=== PATIENT | female | born 1990 | race Caucasian/White ===

== ENCOUNTER 2018-03-25 11:13 | Observation (INO) ==
[2018-03-25] MEDS ORDERED: Ketorolac 15 MG/ML VIAL IVP ONE (12:16)
[2018-03-25] MEDS ORDERED: *HR* HYDROmorphone (PF) 1 MG/ML SYRINGE IVP ONE (12:16)
[2018-03-25] MEDS ORDERED: Ondansetron 4 MG/2 ML VIAL IVP ONE (12:16)
[2018-03-25] MEDS ORDERED: 0.9 % Sodium Chloride 1,000 ML IVC ONE (12:16)
[2018-03-25 12:26] LABS: Bilirubin,Urine Negative (Negative); Blood,Urine Moderate (Negative); Clarity,Urine Clear (Clear); Color,Urine Yellow (Yellow); Glucose,Urine (UA) Normal (Normal); Ketones,Urine Negative (Negative); Leukocyte Esterase,Urine Negative (Negative); Nitrite,Urine Negative (Negative); Protein,Urine Trace mg/dL (Neg-Trace); Specific Gravity,Urine 1.011 (1.010-1.025); Urobilinogen,Urine Normal (Normal)
[2018-03-25 12:27] LABS: Bacteria,Urine Few per hpf (None-Few); Hyaline Casts,Urine None Seen per lpf (None-Few); RBC,Urine 15-30 per hpf (0-3); Squamous Epithelial Cell,Urine Many per lpf (None-Few)
[2018-03-25 12:55] LABS: BUN/Creatinine Ratio 24 (6-26); Blood Urea Nitrogen 21 mg/dL (6-20); Calcium 9.1 mg/dL (8.6-10.3); Carbon Dioxide 25 mEq/L (23-29); Chloride 99 mEq/L (98-107); Glucose 222 mg/dL (70-105); Osmolality,Calculated 290 (280-300); Potassium 4.2 mEq/L (3.5-5.1); Sodium 135 mEq/L (136-145); eGFR For Non-African Americans > 60 (> 60)
--- NOTE | 2018-03-25 13:10 | Emergency Department Note ---
Addendum entered and electronically signed by Erendira Cochran DO 03/26/18 18:58: I did not see this patient. Original Note: Disposition Clinical Impression: Kidney stone, At risk for inadequate pain control Nausea and vomiting Qualifiers: Vomiting type: unspecified Qualified Code(s): R11.2 - Disposition: Admitted As Inpatient Condition: Fair Abdominal Pain HPI - General Chief Complaint: ED Abdominal Pain Stated Complaint: L Flank Pain Time Seen by Provider: 03/25/18 11:47 Source: patient Mode of arrival: ambulatory Limitations: no limitations Nursing Notes Reviewed: Yes Vital Signs Reviewed: Yes - History of Present Illness HPI Narrative: Patient presenting for evaluation of left-sided flank pain. Symptoms started during the week. CAT scan showed left-sided kidney stone. Records do show foci kidney stone. She was taking morphine at home morphine has not been relieving her pain. She has been out of this for 2 days. Not taking other medications. We will attempt to get pain control. Here for left-sided flank pain radiating to the groin. Decreased urination without burning. Associated nausea. Pain Scale: 10 - Related Data Home Medications Medication Instructions Recorded Confirmed RX: Ibuprofen [Ibu-200] 400 mg PO Q6H PRN 03/26/18 03/26/18 Previous Rx's Medication Instructions Recorded RX: OxyCODONE/APAP 5/325 [Percocet 1 each PO Q8HR PRN 3 Days #10 03/26/18 5/325 MG] tablet RX: metFORMIN [Glucophage] 500 mg PO BIDWM #60 tablet 03/26/18 Allergies Allergy/AdvReac Type Severity Reaction Status Date / Time No Known Allergies Allergy Verified 03/06/18 09:04 All systems ED: reviewed and negative except as stated. Review of Systems: As Per HPI Constitutional: Denies: fever, chills, weakness Cardiovascular: Denies: chest pain, palpitations Respiratory: Denies: cough, dyspnea Gastrointestinal: Reports: abdominal pain, nausea. Denies: vomiting Genitourinary: Denies: urgency, dysuria Musculoskeletal: Reports: back pain Integumentary: Denies: rash, abrasion Abdominal Pain PMH - Past Medical History Medical history: Reports: no medical history, other Female Surgical History: Reports: , cholecystectomy, knee replacement, orthopedic, other, other [employer] history: Reports: polycystic ovary syndrome Psychiatric history: Reports: depression - Social History Smoking status: Never smoker Alcohol use: Reports: none Drug use: Reports: none Physical Exam General: Well appearing, nontoxic, no acute distress Head: Normocephalic Atraumatic Eyes: PERRL, EOMI ENT: Airway patent, no stridor Neck: supple Chest: Lungs clear to auscultation bilateral Cardiac: Regular rate and rhythm, no murmurs, rubs or gallops Abdomen: soft, nontender, nondistended; no guarding, rebound, or tenderness to percussion; no significant CVA tenderness Musculoskeletal: Calves symmetric, nontender Skin: No rash, normal skin tone Neuro: Alert and Oriented to person, place, and time; No focal deficit - General Limitations: no limitations General appearance: alert Course - Reevaluation(s) Reevaluation #1: Patient was given Toradol and Dilaudid. Worsening nausea and vomiting. Patient will be admitted for pain control and kidney stone. - Consultations Consultation #1: Discussed with Dr. Martinez Requests hospitalist admission. Keep nothing by mouth. Consultation #2: Discussed with hospitalist. Patient accepted. Vital Signs Temperature 97.7 F 03/25/18 11:26 Pulse Rate 90 03/25/18 11:26 Respiratory Rate 18 03/25/18 11:26 Blood Pressure 123/89 03/25/18 11:26 O2 Sat by Pulse Oximetry 96 03/25/18 11:26 Temperature 98 F 03/26/18 15:49 Pulse Rate 69 03/26/18 15:49 Respiratory Rate 17 03/26/18 15:49 Blood Pressure 101/69 03/26/18 15:49 O2 Sat by Pulse Oximetry 95 03/26/18 15:49 Oxygen Delivery Oxygen Delivery Room Air Abdominal Pain - Lab Data Lab results reviewed: Yes I reviewed the patient's lab results. Result diagrams: 03/26/18 02:20 03/26/18 02:20 Lab Results 03/25/18 03/25/18 03/25/18 Range/Units 11:26 11:26 11:31 Sodium 135 L (136-145) mEq/L Potassium 4.2 (3.5-5.1) mEq/L Chloride 99 (98-107) mEq/L Carbon Dioxide 25 (23-29) mEq/L BUN 21 H (6-20) mg/dL Creatinine 0.87 (0.60-1.20) mg/dL Est GFR ( Amer) > 60 (> 60) Est GFR (Non-Af Amer) > 60 (> 60) BUN/Creatinine Ratio 24 (6-26) Glucose 222 H (70-105) mg/dL Est Mean Plasma Glucose mg/dl Hemoglobin A1c ( - 5.6) % Calculated Osmolality 290 (280-300) Calcium 9.1 (8.6-10.3) mg/dL Urine Color Yellow (Yellow) Urine Clarity Clear (Clear) Urine pH 6.0 (5.0-8.0) pH Units Ur Specific [place] 1.011 (1.010-1.025) Urine Protein Trace (Neg-Trace) mg/dL Urine Glucose (UA) Normal (Normal) mg/dL Urine Ketones Negative (Negative) mg/dL Urine Blood Moderate H (Negative) Urine Nitrite Negative (Negative) Urine Bilirubin Negative (Negative) Urine Urobilinogen Normal (Normal) mg/dL Ur Leukocyte Esterase Negative (Negative) Urine Microscopic RBC 15-30 H (0-3) per hpf Urine Microscopic WBC 3-5 H (0-3) per hpf Ur Squamous Epith Cells Many H (None-Few) per lpf Urine Bacteria Few (None-Few) per hpf Hyaline Casts None Seen (None-Few) per lpf Ur Culture Indicated? NO (NO) Urine Test Negative (Negative) 03/25/18 Range/Units 11:31 Sodium (136-145) mEq/L Potassium (3.5-5.1) mEq/L Chloride (98-107) mEq/L Carbon Dioxide (23-29) mEq/L BUN (6-20) mg/dL Creatinine (0.60-1.20) mg/dL Est GFR ( Amer) (> 60) Est GFR (Non-Af Amer) (> 60) BUN/Creatinine Ratio (6-26) Glucose (70-105) mg/dL Est Mean Plasma Glucose 226 mg/dl Hemoglobin A1c 9.5 H ( - 5.6) % Calculated Osmolality (280-300) Calcium (8.6-10.3) mg/dL Urine Color (Yellow) Urine Clarity (Clear) Urine pH (5.0-8.0) pH Units Ur Specific [place] (1.010-1.025) Urine Protein (Neg-Trace) mg/dL Urine Glucose (UA) (Normal) mg/dL Urine Ketones (Negative) mg/dL Urine Blood (Negative) Urine Nitrite (Negative) Urine Bilirubin (Negative) Urine Urobilinogen (Normal) mg/dL Ur Leukocyte Esterase (Negative) Urine Microscopic RBC (0-3) per hpf Urine Microscopic WBC (0-3) per hpf Ur Squamous Epith Cells (None-Few) per lpf Urine Bacteria (None-Few) per hpf Hyaline Casts (None-Few) per lpf Ur Culture Indicated? (NO) Urine Test (Negative) - Radiology Data Radiology results reviewed: Yes I reviewed the patient's radiology results. Fluoroscopy 03/25/18 00:00 IMPRESSION: Fluoroscopy was utilized for the purposes of left renal stent placement for ureteral calculus D/ / Shawn Gallagher MD / Shawn Gallagher MD Interpreting Provider: Shawn Gallagher MD X-Ray 03/25/18 00:00
[2018-03-25] MEDS ORDERED: Metoclopramide 10 MG/2 ML VIAL IVP ONE (13:57)
[2018-03-25] MEDS ORDERED: *HR* FentaNYL (PF) 100 MCG/2 ML VIAL IVP ONE (13:57)
[2018-03-25] MEDS ORDERED: Naloxone 0.4 MG/ML INJ IVP PRN ×2 (14:29→17:54)
[2018-03-25] MEDS ORDERED: Ondansetron 4 MG/2 ML VIAL IVP PRN (14:33)
[2018-03-25] MEDS ORDERED: *HR* Dextrose 50 % in Water (Syg) 50 ML SYRINGE IVP PRN ×2 (14:34→17:54)
[2018-03-25] MEDS ORDERED: Dextrose Gel 15 GM/37.5 ML TUBE PO PRN ×4 (14:34→17:54)
[2018-03-25] MEDS ORDERED: D5% in Water 1,000 ML IVC PRN ×2 (14:34→17:54)
--- NOTE | 2018-03-25 14:40 | Internal Med History&Physical ---
Date of Encounter: 03/25/18 Time of Encounter: 14:35 Internal Medicine - H&P: HPI Chief complaint: Left flank pain, vomiting Admitted From: Home Plans for Post Hospital Care: at Home History of present illness: Ms. Schulte is a 27 year old female with history of depression but not on any antidepressant, questionable diabetes mellitus, COPD but not on any home medication presented to ER with worsening of left flank pain associated with nausea but started vomiting today therefore decided to come to ER. Patient was here in the ER recently on 03/18/2018 with left flank pain and CT scan of abdomen was done with finding of 6 mm obstructive nephrolithiasis within the left UPJ causing mild hydronephrosis but she was sent home on conservative management and advised to follow with urologist and return to ER if symptoms get worse. Eventually her symptoms got worse therefore decided to come to ER. In ER her vitals were stable. Initial lab with elevation of blood glucose level but CBC not ordered. Repeat CT abdomen was not done. ER physician talked to on-call urologist and discussed the case with urologist who advised to admit patient under hospitalist and accepted the consultation. In ER initial supportive management with IV fluid, antiemetic and pain medicine was started. ER physician called on-call hospitalists for the admission. Patient denies fever chills dizziness chest pain shortness of breath cough diarrhea and urinary complaint. complained of nausea vomiting abdominal pain rated 10 x 10 at this time. Past Med Surg Social Fam HX - Past Medical History Medical history: no medical history, other Additional medical history: PCOS Psychiatric history: depression - Past Surgical History Surgical History: , cholecystectomy, orthopedic, other Additional surgical history: left knee. carpal tunnel/tendon surgery on left wrist - Social History Smoking Status: Never smoker Smokeless Tobacco Status: No Alcohol use: none Drug use: none Internal Medicine - H&P: Meds Cyclobenzaprine [Flexeril] 10 mg PO HS #10 tablet 03/06/18 [Rx] Ibuprofen 03/06/18 [History] Naproxen [Naprosyn] 500 mg PO BID PRN #20 tablet 03/06/18 [Rx] Allergy/AdvReac Type Severity Reaction Status Date / Time No Known Allergies Allergy Verified 03/06/18 09:04 All Systems PM: A 10-system review of systems was performed and is negative for pertinent findings except as documented above in the HPI. - Constitutional Vitals: Temp Pulse Resp BP Pulse Ox 97.7 F 90 20 115/72 100 03/25/18 11:26 03/25/18 12:51 03/25/18 12:51 03/25/18 12:51 03/25/18 12:51 Exam: General appearance: Moderate to severe distress due to pain, A&O X 3. Girlfriend at bedside. Morbidly obese Head exam: Atraumatic Eye exam: EOMI, PERRLA ENT exam: Moist oral mucosa Neck nontender, supple Respiratory exam: Clear to auscultation bilaterally Cardiovascular exam: Regular rate and rhythm, no systolic murmur Abdominal exam: Soft, nondistended, positive bowel sounds , left CVA tenderness Extremities exam: No calf tenderness, no pedal edema Present: Skin-no rash, warm, dry, intact Neurological exam: CN II-XII intact, no focal deficits. No facial droop. Internal Med - H&P Results - Labs CBC & Chem 7: 03/25/18 11:31 Labs: BMP 03/25/18 11:31 Sodium 135 L Potassium 4.2 Chloride 99 Carbon Dioxide 25 BUN 21 H Creatinine 0.87 Glucose 222 H Calcium 9.1 Urine 03/25/18 Range/Units 11:26 Urine Color Yellow (Yellow) Urine Clarity Clear (Clear) Urine pH 6.0 (5.0-8.0) pH Units Ur Specific [place] 1.011 (1.010-1.025) Urine Protein Trace (Neg-Trace) mg/dL Urine Glucose (UA) Normal (Normal) mg/dL - Assessment and plan (1) Obstructive uropathy Current Visit: Yes Status: Acute Assessment and plan: Secondary to left kidney stone 6-8 mm left UPJ site with obstruction. Consulted urologist who will take patient to operative room today for cystoscopy and left ureteral stent placement. Continue conservative management keeping nothing by mouth, normal saline 125 mL per hour, pain management. Urine culture ordered. Rocephin started. CBC is awaited. (2) Kidney stone on left side Current Visit: No Status: Acute Assessment and plan: As mentioned above. (3) Nausea and vomiting Current Visit: Yes Status: Acute Assessment and plan: With mild to moderate dehydration. Secondary to above. Supportive treatment IV fluid, nothing by mouth, antiemetic. Treat underlying cause. Qualifiers: Vomiting type: unspecified Qualified Code(s): R11.2 - Nausea with vomiting, unspecified (4) Poorly controlled diabetes mellitus Current Visit: Yes Status: Acute Assessment and plan: Noncompliance. Does not take any antidiabetic medication. A1c ordered. SSI. Accu-Chek, Diabetic diet. Diabetes education (5) DVT prophylaxis Current Visit: Yes Status: Acute Assessment and plan: SCDs. Plan for early ambulation (6) Obesity Current Visit: Yes Status: Acute Assessment and plan: High risk for metabolic syndrome. Patient has diabetes unknown status about lipid profile. Educated about low-calorie diet and exercise. Also advised for weight loss clinic with the help of PCP on OPD basis. Qualifiers: Obesity type: unspecified obesity type Obesity classification: adult class 3 (BMI >= 40) Serious obesity comorbidity presence: unspecified whether serious comorbidity present Body mass index: BMI 50.0-59.9 Qualified Code(s): E66.01 - Morbid (severe) obesity due to excess calories; Z68.43 - Body mass index (BMI) 50-59.9, adult - Time Spent With Patient Total time spent is greater than 50% in coordination of care (as documented) at patient's floor/unit and/or counseling patient: 25 - 35 minutes
[2018-03-25] MEDS ORDERED: 0.9 % Sodium Chloride 1,000 ML IVC SCH (14:45)
--- NOTE | 2018-03-25 14:46 | Urology - Consult Note ---
Date of Encounter: 03/25/18 Time of Encounter: 14:44 - Assessment and Plan (1) Nausea and vomiting Current Visit: Yes Status: Acute Assessment and plan: Likely secondary to obstructing stone. We will plan on taking the patient to the operating room today for cystoscopy and left ureteral stent placement Qualifiers: Vomiting type: unspecified Qualified Code(s): R11.2 - Nausea with vomiting, unspecified (2) Poorly controlled diabetes mellitus Current Visit: Yes Status: Acute Assessment and plan: Per primary team. Patient needs tight control blood sugar. (3) Kidney stone on left side Current Visit: No Status: Acute Assessment and plan: Patient with obstructing 6-8 mm left UPJ stone. We will plan on taking the patient to the operating room today for cystoscopy and left ureteral stent placement. Urology CN:ALEE Consult date: 03/25/18 Reason for consult Urology: Hydronephrosis Requesting physician: Shannon Carlton History of present illness: Marisa is a 27-year-old female who presented to the emergency department approximately a week ago secondary to left UPJ stone. Patient was discharged home that time with pain control and nausea control. Patient now presents back to the emergency room secondary pain is uncontrollable with a 10 out of 10 sharp in nature with location a left flank with some persistent nausea and vomiting. Patient denies any fevers. Patient feels so awful that she is barely able to answer questions Past Med Surg Social Fam HX - Past Medical History Medical history: no medical history, other Additional medical history: PCOS Psychiatric history: depression - Past Surgical History Surgical History: , cholecystectomy, orthopedic, other Additional surgical history: left knee. carpal tunnel/tendon surgery on left wrist - Social History Smoking Status: Never smoker Smokeless Tobacco Status: No Alcohol use: none Drug use: none Medications and Allergies Cyclobenzaprine [Flexeril] 10 mg PO HS #10 tablet 03/06/18 [Rx] Ibuprofen 03/06/18 [History] Naproxen [Naprosyn] 500 mg PO BID PRN #20 tablet 03/06/18 [Rx] Allergy/AdvReac Type Severity Reaction Status Date / Time No Known Allergies Allergy Verified 03/06/18 09:04 Review of Systems - Constitutional no chills, no fever(s) - EENT Nose, mouth and throat: no dizziness, no sore throat - Cardiovascular no dyspnea - Respiratory no cough - Gastrointestinal nausea, vomiting Exam Initial Vital Signs Temp Pulse Resp BP Pulse Ox 97.7 F 90 18 123/89 96 03/25/18 11:26 03/25/18 11:26 03/25/18 11:26 03/25/18 11:26 03/25/18 11:26 General/Neuological: alert and oriented x 3 Eyes: normal pupils, non-icteric Neck: no lymphadenopathy noted, supple to touch ABD: soft, nontender, no masses palpated, good bowel sounds Back: no pain on percussion bilaterally Skin: no rashes noted Musculoskeletal: normal gait, FROMx4 Urology Results - Labs 03/25/18 11:31 Abnormal lab results Sodium 135 mEq/L (136-145) L 03/25/18 11:31 BUN 21 mg/dL (6-20) H 03/25/18 11:31 Glucose 222 mg/dL (70-105) H 03/25/18 11:31 Urine Blood Moderate (Negative) H 03/25/18 11:26 Urine Microscopic RBC 15-30 per hpf (0-3) H 03/25/18 11:26 Urine Microscopic WBC 3-5 per hpf (0-3) H 03/25/18 11:26 Ur Squamous Epith Cells Many per lpf (None-Few) H 03/25/18 11:26 Diabetes panel 03/25/18 Range/Units 11:31 Sodium 135 L (136-145) mEq/L Potassium 4.2 (3.5-5.1) mEq/L Chloride 99 (98-107) mEq/L Carbon Dioxide 25 (23-29) mEq/L BUN 21 H (6-20) mg/dL Creatinine 0.87 (0.60-1.20) mg/dL Glucose 222 H (70-105) mg/dL Calcium 9.1 (8.6-10.3) mg/dL Calcium panel 03/25/18 Range/Units 11:31 Calcium 9.1 (8.6-10.3) mg/dL Pituitary panel 03/25/18 Range/Units 11:31 Sodium 135 L (136-145) mEq/L Potassium 4.2 (3.5-5.1) mEq/L Chloride 99 (98-107) mEq/L Carbon Dioxide 25 (23-29) mEq/L BUN 21 H (6-20) mg/dL Creatinine 0.87 (0.60-1.20) mg/dL Glucose 222 H (70-105) mg/dL Calcium 9.1 (8.6-10.3) mg/dL Adrenal panel 03/25/18 Range/Units 11:31 Sodium 135 L (136-145) mEq/L Potassium 4.2 (3.5-5.1) mEq/L Chloride 99 (98-107) mEq/L Carbon Dioxide 25 (23-29) mEq/L BUN 21 H (6-20) mg/dL Creatinine 0.87 (0.60-1.20) mg/dL Glucose 222 H (70-105) mg/dL Calcium 9.1 (8.6-10.3) mg/dL All other labs normal. Consult Discharge Plan - Plan Referrals: Riccardo,Alfonso Rincon MD [Primary Care Provider] -
--- NOTE | 2018-03-25 15:53 | Anesthesia Evaluation PreOp ---
Date of Encounter: 03/25/18 Time of Encounter: 16:00 - Past History Planned Operation: Left Ureteral Stent Cystoscopy Cardiac History: Denies any Significant Hx Pulmonary History: Denies Any Significant HX [employer] History: Denies Any Significant HX Other Medical History: Diabetes Type II, Other (PCOS [place]) Anesthesia History: No Prior Anesthetic Complications : No Test: Negative Alcohol Use: none Drug use: none Medications and Allergies Cyclobenzaprine [Flexeril] 10 mg PO HS #10 tablet 03/06/18 [Rx] Ibuprofen 03/06/18 [History] Naproxen [Naprosyn] 500 mg PO BID PRN #20 tablet 03/06/18 [Rx] Allergy/AdvReac Type Severity Reaction Status Date / Time No Known Allergies Allergy Verified 03/06/18 09:04 - Meds/Allergy Pre-op Review Medications Reviewed: Yes Allergies Reviewed: Yes Beta Blockers on Current Med List: No Anesthesia Results - Labs 03/25/18 11:31 Laboratory Tests 03/18/18 03/18/18 03/25/18 15:13 15:16 11:31 Hgb 12.9 Hct 39.1 Plt Count 207 Sodium 135 L Potassium 4.2 BUN 21 H Creatinine 0.87 Urine Test Negative - Imaging EKG: report reviewed (SR) Anesthesia Exam Vital Signs/O2 Sat/Glucose, Most Current Pulse Resp BP Pulse Ox 03/25/18 14:35 75 18 132/98 100 03/25/18 12:51 90 20 115/72 100 Height: 5'5 Weight: 356 lbs NPO (# of Hours): MN Pain Scale: 0 - HEENT Pupil (Motor): Pupils equal, EOMI Mallampati: III Teeth: Normal Oral Opening: Less than or equal to 3 - [employer] LOC: Oriented [employer] Motor: Normal RUE, Normal LUE, Normal RLE, Normal LLE, Normal Face [employer] Sensory: Normal: RUE, LUE, RLE, LLE, Face - Cardiac Rhythm: Regular Murmur: None JVD: No Carotid Bruit: No - Pulmonary Breath Sounds: bilateral Clear Respiratory Effort: Symmetrical Anesthesia Assess/Plan ASA Score: 3 (MO) Level of consciousness: Cooperative Anesthetic Plan: General Autologous Blood: No Monitoring Plan: Standard Monitors Recovery Plan: PACU (Discussed GA, agrees to proceed)
[2018-03-25] MEDS ORDERED: Metoclopramide 10 MG/2 ML VIAL ONE (15:56)
[2018-03-25] MEDS ORDERED: cefTRIAXone 1,000 MG in Water for inj. (sterile) 20 ML 10 ML IVP SCH (16:00)
[2018-03-25] MEDS ORDERED: *HR* FentaNYL (PF) 100 MCG/2 ML VIAL ONE (16:05)
[2018-03-25] MEDS ORDERED: *HR* Propofol 200 MG/20 ML VIAL IVP ONE (16:05)
[2018-03-25] MEDS ORDERED: Lidocaine -MPF 4% 5 ML AMPUL ONE (16:07)
[2018-03-25] MEDS ORDERED: Famotidine 20 MG/2 ML VIAL ONE (16:20)
[2018-03-25] MEDS ORDERED: ceFAZolin 2,000 MG in Water for inj. (sterile) 20 ML 10 ML IVP ONE (16:30)
[2018-03-25] MEDS ORDERED: Lidocaine -MPF 2% 2 ML VIAL ONE (16:41)
--- NOTE | 2018-03-25 17:12 | Operative Note ---
Date of procedure: 03/25/18 Pre-op diagnosis: left upj stone Post-op diagnosis: same Procedure: Cystoscopy and 4.8 x 26 cm ureteral stent placement Anesthesia: GETA Surgeon: Clem Barahona Was there an radiology assistant present: No Estimated blood loss (cc): 0 Specimen: none Condition: stable Disposition: PACU Procedure in Detail: Patient was prepped and draped in normal sterile fashion. Timeout procedure performed. I then inserted the cystoscope into the patient's bladder. I was able to cannulate the left ureteral orifice using a sensor wire. I then placed a 4.8 x 26 cm ureteral stent with good curl seen in the left kidney and in the bladder. Bladder was drained and procedure was ended. Patient taken to PACU in stable condition.
--- NOTE | 2018-03-25 17:42 | Anesthesia Evaluation Post Op ---
Date of Encounter: 03/25/18 Time of Encounter: 17:45 - Vital Signs Vital Signs: Vital Signs/O2 Sat/Glucose, Most Current Temp Pulse Resp BP Pulse Ox 03/25/18 17:40 97.3 F L 76 16 120/77 95 03/25/18 17:30 86 16 118/71 93 03/25/18 17:20 79 16 111/75 94 03/25/18 17:10 96.8 F L 75 16 123/71 100 03/25/18 14:35 75 18 132/98 100 - Lungs Lungs: Clear Ascult./Percussion - Airway Airway: Non-obstructed - Cardiovascular Regular Rate - Mental Status Mental Status: Alert & Oriented, Answers Appropriately - Pain Pain Scale: 0 - Nausea Vomiting Nausea Vomiting: Not Present - Hydration Hydration: Ice chips - Discharge PostOp Status: Transfer Patient to floor
[2018-03-25] MEDS ORDERED: Insulin LISPRO 300 UNITS/3 ML VIAL SQ SCH (18:00)
[2018-03-25] MEDS ORDERED: Ketorolac 30 MG/ML VIAL IVP SCH (18:00)
[2018-03-25] MEDS: Insulin LISPRO 300 UNITS/3 ML VIAL SQ SCH (18:50)
[2018-03-25] MEDS: Ketorolac 30 MG/ML VIAL IVP SCH (18:50)
[2018-03-25] MEDS: Ondansetron 4 MG/2 ML VIAL IVP PRN (19:34)
[2018-03-25] MEDS: 0.9 % Sodium Chloride 1,000 ML IVC SCH (19:35)
[2018-03-26] MEDS: Insulin LISPRO 300 UNITS/3 ML VIAL SQ SCH ×4 (00:11→17:00)
[2018-03-26] MEDS: Ketorolac 30 MG/ML VIAL IVP SCH ×2 (00:11→05:57)
[2018-03-26] MEDS ORDERED: Dextrose Gel 15 GM/37.5 ML TUBE PO PRN (00:47)
[2018-03-26] MEDS ORDERED: D5% in Water 1,000 ML IVC PRN ×2 (00:47→01:10)
[2018-03-26] MEDS ORDERED: *HR* Dextrose 50 % in Water (Syg) 50 ML SYRINGE IVP PRN (00:47)
[2018-03-26 02:44] LABS: Basophils # 0.1 K/mcL (0.0-0.2); Basophils % 0.5 %; Eosinophils # 0.2 K/mcL (0.0-0.6); Eosinophils % 1.6 %; Immature Granulocytes % 0.2 % (0-4); Lymphocytes # 1.9 K/mcL (0.6-4.6); Lymphocytes % 20.1 %; Mean Corpuscular HGB Conc 32.5 g/dL (31.6-35.5); Mean Corpuscular Hemoglobin 27.8 pg (28.0-33.3); Mean Corpuscular Volume 85.7 fL (83.0-100.0); Mean Platelet Volume 10.1 fL (9.4-12.4); Monocytes # 0.6 K/mcL (0.0-1.3); Monocytes % 6.4 %; Neutrophils # 6.8 K/mcL (1.6-8.9); Platelet Count 236 K/mcL (140-400); Red Blood Count 4.67 M/mcL (3.82-4.97); Red Cell Distribution Width 13.9 % (11.5-14.5); Segmented Neutrophils % 71.2 %
[2018-03-26 03:05] LABS: BUN/Creatinine Ratio 19 (6-26); Blood Urea Nitrogen 16 mg/dL (6-20); Calcium 8.3 mg/dL (8.6-10.3); Carbon Dioxide 26 mEq/L (23-29); Chloride 104 mEq/L (98-107); Glucose 177 mg/dL (70-105); Osmolality,Calculated 290 (280-300); Potassium 4.5 mEq/L (3.5-5.1); Sodium 137 mEq/L (136-145); eGFR For Non-African Americans > 60 (> 60)
[2018-03-26] MEDS: 0.9 % Sodium Chloride 1,000 ML IVC SCH ×3 (04:18→18:42)
--- NOTE | 2018-03-26 07:04 | Urology Progress Note ---
Date of Encounter: 03/26/18 Time of Encounter: 07:02 - Assessment and Plan (1) Nausea and vomiting Current Visit: Yes Status: Acute Assessment and plan: Appears mostly resolved Qualifiers: Vomiting type: unspecified Qualified Code(s): R11.2 - Nausea with vomiting, unspecified (2) Poorly controlled diabetes mellitus Current Visit: Yes Status: Acute Assessment and plan: Hemoglobin A1c pending (3) Kidney stone on left side Current Visit: No Status: Inactive Assessment and plan: Patient scheduled for follow-up on April 05 at 10 AM to discuss further management of left kidney stone. We will want to document the patient has better control of her blood sugar. Progress Note Narrative: Patient seen this morning. Patient feeling better. Nausea resolved. Hemoglobin A1c pending. blood sugars have been consistently around 200 Objective Initial Vital Signs Temp Pulse Resp BP Pulse Ox 97.7 F 90 18 123/89 96 03/25/18 11:26 03/25/18 11:26 03/25/18 11:26 03/25/18 11:26 03/25/18 11:26 - General physical appearance Present: well developed, well nourished - Abdomen Present: soft. Absent: tender (Morbidly obese) - Labs 03/26/18 02:20 03/26/18 02:20 Diabetes panel 03/25/18 03/26/18 Range/Units 11:31 02:20 Sodium 135 L 137 (136-145) mEq/L Potassium 4.2 4.5 (3.5-5.1) mEq/L Chloride 99 104 (98-107) mEq/L Carbon Dioxide 25 26 (23-29) mEq/L BUN 21 H 16 (6-20) mg/dL Creatinine 0.87 0.83 (0.60-1.20) mg/dL Glucose 222 H 177 H (70-105) mg/dL Calcium 9.1 8.3 L (8.6-10.3) mg/dL Calcium panel 03/25/18 03/26/18 Range/Units 11:31 02:20 Calcium 9.1 8.3 L (8.6-10.3) mg/dL Pituitary panel 03/25/18 03/26/18 Range/Units 11:31 02:20 Sodium 135 L 137 (136-145) mEq/L Potassium 4.2 4.5 (3.5-5.1) mEq/L Chloride 99 104 (98-107) mEq/L Carbon Dioxide 25 26 (23-29) mEq/L BUN 21 H 16 (6-20) mg/dL Creatinine 0.87 0.83 (0.60-1.20) mg/dL Glucose 222 H 177 H (70-105) mg/dL Calcium 9.1 8.3 L (8.6-10.3) mg/dL Adrenal panel 03/25/18 03/26/18 Range/Units 11:31 02:20 Sodium 135 L 137 (136-145) mEq/L Potassium 4.2 4.5 (3.5-5.1) mEq/L Chloride 99 104 (98-107) mEq/L Carbon Dioxide 25 26 (23-29) mEq/L BUN 21 H 16 (6-20) mg/dL Creatinine 0.87 0.83 (0.60-1.20) mg/dL Glucose 222 H 177 H (70-105) mg/dL Calcium 9.1 8.3 L (8.6-10.3) mg/dL Consult Discharge Plan - Plan Referrals: Riccardo,Alfonso Rincon MD [Primary Care Provider] -
[2018-03-26] MEDS ORDERED: Insulin LISPRO 300 UNITS/3 ML VIAL SQ SCH ×3 (07:30→21:00)
[2018-03-26] MEDS ORDERED: cefTRIAXone 1,000 MG in Water for inj. (sterile) 20 ML 10 ML IVP SCH (09:00)
[2018-03-26 09:44] LABS: Estimated Average Glucose 226 mg/dl; Hemoglobin A1C 9.5 %
[2018-03-26] MEDS ORDERED: traMADol 50 MG TABLET PO PRN ×2 (10:37→13:32)
[2018-03-26] MEDS ORDERED: *HR* OxyCODONE/APAP 5/325 TABLET PO PRN (13:33)
[2018-03-26 15:49] VITALS: BP 101/69
--- NOTE | 2018-03-26 16:46 | Discharge Summary ---
- NOTES TO OUTPATIENT PROVIDER Notes to Outpatient Provider: With PCP in 2- 3 days-diabetes management, diabetes education. Titrate up metformin and add other OHA or possibly insulin. Keep appointment with urologist as a scheduled in 3 days. Keep herself hydrated. Orders not resulted at time of discharge: Pending orders 03/25/18 11:26 Culture,Urine [RM] Stat Date of Encounter: 03/26/18 Time of Encounter: 16:45 - Discharge Diagnosis (1) Obstructive uropathy Priority: Primary Status: Acute Assessment and Plan: Secondary to left kidney stone 6-8 mm left UPJ site with obstruction. Consulted urologist who did perform cystoscopy and left ureteral stent placement. Urologists okay to discharge patient home with pain management and will follow-up in 3 days in his office to discuss about further management of left kidney stone. No antibiotic advice at discharge. (2) Kidney stone on left side Priority: Primary Status: Inactive Assessment and Plan: As mentioned above. Normal kidney function (3) Nausea and vomiting Priority: Primary Status: Acute Assessment and Plan: Resolved completely. Patient is tolerating oral diet and not requiring antiemetic medicine. Qualifiers: Vomiting type: unspecified Qualified Code(s): R11.2 - Nausea with vomiting, unspecified (4) Poorly controlled diabetes mellitus Priority: Primary Status: Acute Assessment and Plan: Noncompliance. A1c 9.0. Metformin 500 mg twice a day started and discussed side effects such as possible nausea vomiting diarrhea abdominal discomfort. She needs to talk to her primary care physician about further management. Diabetes education in supply given at the time of discharge. Advised for Diabetic diet. (5) Obesity Priority: Secondary Status: Acute Assessment and Plan: High risk for metabolic syndrome. Patient has diabetes. unknown status about lipid profile. Educated about low-calorie diet and exercise. Also advised for weight loss clinic with the help of PCP on OPD basis. Qualifiers: Obesity type: unspecified obesity type Obesity classification: adult class 3 (BMI >= 40) Serious obesity comorbidity presence: unspecified whether serious comorbidity present Body mass index: BMI 50.0-59.9 Qualified Code(s): E66.01 - Morbid (severe) obesity due to excess calories; Z68.43 - Body mass index (BMI) 50-59.9, adult Hospital course: Ms. Schulte is a 27 year old female patient got admitted for obstructive uropathy due to left kidney stone. Urologist was consulted. Please see detail in diagnosis section of discharge summary. Diabetes was uncontrolled therefore OHA was restarted but patient needs to follow primary care physician for tight blood glucose control. At the time of discharge pain is well controlled, ambulating and tolerating oral diet. She will be discharged on Percocet 5/325 one tablet every 8 hours when necessary therefore 10 tablets given on discharge and further management as per PCP. Keep appointment with urologist and PCP as already scheduled. Discharge discussed with: patient, nurse, case management, travel sales consultant - Time Spent with Patient Total time spent providing and/or coordinating discharge services: Less than 30 minutes - Discharge Medications Home Medications: Ibuprofen [Ibu-200] 400 mg PO Q6H PRN 03/26/18 [History] Allergies/Adverse Reactions: Allergy/AdvReac Type Severity Reaction Status Date / Time No Known Allergies Allergy Verified 03/06/18 09:04 Date of admission: 03/25/18 14:18 Primary care physician: Alfonso Gu MD Consults: 03/25/18 14:11 Consult to Urology [CONS] Stat Consulting Provider: Urology [facility] Reason for Consult: kidney stone, uncontrolled pain Call Completed: Yes 03/25/18 14:31 Consult to Lobby Concierge [CONS] Routine Reason for SW Consult: Discharge plan 03/25/18 15:26 Consult to Diabetes Education [CONS] Routine Comment: Reason for Consult: Diabetes education - Constitutional Vitals: Temp Pulse Resp BP Pulse Ox 98 F 69 17 101/69 95 03/26/18 15:49 03/26/18 15:49 03/26/18 15:49 03/26/18 15:49 03/26/18 15:49 Exam: General appearance: No acute distress, A&O X 3, morbidly obese Head exam: Atraumatic Eye exam: EOMI, PERRLA ENT exam: Moist oral mucosa Neck nontender, supple Respiratory exam: Clear to auscultation bilaterally Cardiovascular exam: Regular rate and rhythm, no systolic murmur Abdominal exam: Soft, nontender, left CVA tenderness better, positive bowel sounds Extremities exam: No calf tenderness, no pedal edema Present: Skin-no rash, warm, dry, intact Neurological exam: Grossly intact - Patient Status Disposition: Home, Self-Care Condition: Fair Overall status at discharge: patient is progressing back to baseline - Discharge Instructions Follow Up With: Alfonso Gu MD [Primary Care Provider] - 03/30/18 2:30 pm (This appointment is for your hospital follow up and they will also have a [employer] speak with you during this appointment. Please give a 24 hour notice if you need to reschedule/cancel. Please bring an updated medication list with you to your appointment.) - Diet and Activity Activity: increase activity as tolerated Diet: diabetic diet, low fat, low cholesterol, low salt diet
[2018-03-26] MEDS ORDERED: *HR* Metformin 500 MG TABLET PO SCH (17:00)
[2018-03-26] MEDS: Ondansetron 4 MG/2 ML VIAL IVP PRN (18:42)
== END 2018-03-26 20:25 | disposition home or self-care (01) ==
LOC: 3ANU 11:13 → EMEROOARM 11:13 → 3ANU 15:20
PROVIDERS: ADMIT General Practice; ATTEND General Practice

== ENCOUNTER 2019-11-19 17:14 | Observation (INO) ==
[2019-11-19] MEDS ORDERED: Naloxone 0.4 MG/ML INJ IVP PRN (18:10)
[2019-11-19] MEDS ORDERED: Ondansetron 4 MG/2 ML VIAL IVP PRN (18:10)
[2019-11-19] MEDS ORDERED: D5% in Water 1,000 ML IVC PRN (18:12)
[2019-11-19] MEDS ORDERED: Dextrose Gel 15 GM/37.5 ML TUBE PO PRN ×2 (18:12)
[2019-11-19] MEDS ORDERED: *HR* Dextrose 50 % in Water (Vial) 50 ML VIAL IVP PRN (18:12)
[2019-11-19] MEDS ORDERED: Ringers Solution, Lactated 1,000 ML IVC SCH (18:15)
[2019-11-19 18:55] LABS: Basophils % 0.4 %; Eosinophils % 0.1 %; Hematocrit 43.3 % (35.3-44.9); Hemoglobin 13.7 g/dL (11.5-15.4); Immature Granulocytes % 0.5 % (0-4); Lymphocytes # 1.4 K/mcL (0.6-4.6); Lymphocytes % 14.3 %; Mean Corpuscular HGB Conc 31.6 g/dL (31.6-35.5); Mean Corpuscular Hemoglobin 27.3 pg (28.0-33.3); Mean Corpuscular Volume 86.3 fL (83.0-100.0); Mean Platelet Volume 10.3 fL (9.4-12.4); Monocytes # 0.3 K/mcL (0.0-1.3); Monocytes % 2.7 %; Platelet Count 201 K/mcL (140-400); Red Blood Count 5.02 M/mcL (3.82-4.97); Red Cell Distribution Width 14.1 % (11.5-14.5)
[2019-11-19 18:59] LABS: Neutrophils # 7.9 K/mcL (1.6-8.9); White Blood Count 9.6 K/mcL (4.3-11.1)
[2019-11-19 19:19] LABS: Alanine Aminotransferase 60 Units/L (7-52); Albumin/Globulin Ratio 1.1 (1.1-2.2); Alkaline Phosphatase 58 Units/L (34-104); Aspartate Amino Transferase 69 Units/L (13-39); BUN/Creatinine Ratio 23 (6-26); Bilirubin,Total 0.4 mg/dL (0.3-1.0); Blood Urea Nitrogen 19 mg/dL (6-20); Calcium 8.9 mg/dL (8.6-10.3); Carbon Dioxide 25 mEq/L (23-29); Chloride 99 mEq/L (98-107); Globulin 3.7 g/dL (2.4-3.5); Glucose 308 mg/dL (70-105); Osmolality,Calculated 290 (280-300); Phosphorous 2.8 mg/dL (2.7-4.5); Potassium 4.3 mEq/L (3.5-5.1); Sodium 133 mEq/L (136-145); Total Protein 7.7 g/dL (6.4-8.9); eGFR For African Americans > 60 (> 60); eGFR For Non-African Americans > 60 (> 60)
[2019-11-20] MEDS ORDERED: Ibuprofen 600 MG TABLET PO ONE (00:13)
[2019-11-20] MEDS: Insulin LISPRO 300 UNITS/3 ML VIAL SQ SCH ×2 (00:20→06:13)
[2019-11-20 04:50] LABS: Basophils % 0.3 %; Hematocrit 41.2 % (35.3-44.9); Hemoglobin 13.4 g/dL (11.5-15.4); Immature Granulocytes % 0.4 % (0-4); Lymphocytes # 1.6 K/mcL (0.6-4.6); Lymphocytes % 16.9 %; Mean Corpuscular HGB Conc 32.5 g/dL (31.6-35.5); Mean Corpuscular Volume 86.2 fL (83.0-100.0); Mean Platelet Volume 10.1 fL (9.4-12.4); Monocytes # 0.6 K/mcL (0.0-1.3); Monocytes % 5.9 %; Neutrophils # 7.4 K/mcL (1.6-8.9); Platelet Count 220 K/mcL (140-400); Red Blood Count 4.78 M/mcL (3.82-4.97); Segmented Neutrophils % 76.5 %; White Blood Count 9.6 K/mcL (4.3-11.1)
[2019-11-20 05:08] LABS: BUN/Creatinine Ratio 20 (6-26); Blood Urea Nitrogen 16 mg/dL (6-20); Calcium 8.3 mg/dL (8.6-10.3); Carbon Dioxide 24 mEq/L (23-29); Chloride 101 mEq/L (98-107); Glucose 275 mg/dL (70-105); Osmolality,Calculated 287 (280-300); Potassium 4.3 mEq/L (3.5-5.1); Sodium 133 mEq/L (136-145); eGFR For African Americans > 60 (> 60); eGFR For Non-African Americans > 60 (> 60)
[2019-11-20 05:11] LABS: Albumin 3.7 g/dL (3.5-5.7); Albumin/Globulin Ratio 1.1 (1.1-2.2); Bilirubin,Direct 0.1 mg/dL (0.0-0.2); Bilirubin,Indirect 0.4 mg/dL (0.0-1.0); Bilirubin,Total 0.5 mg/dL (0.3-1.0); Globulin 3.3 g/dL (2.4-3.5)
[2019-11-20 07:14] VITALS: BP 110/66
[2019-11-20] MEDS ORDERED: Dextrose Gel 15 GM/37.5 ML TUBE PO PRN ×2 (08:02)
[2019-11-20] MEDS ORDERED: *HR* Dextrose 50 % in Water (Vial) 50 ML VIAL IVP PRN (08:02)
[2019-11-20] MEDS ORDERED: D5% in Water 1,000 ML IVC PRN (08:02)
[2019-11-20] MEDS ORDERED: Insulin LISPRO 300 UNITS/3 ML VIAL SQ SCH ×2 (08:15→21:00)
== END 2019-11-20 11:30 | disposition home or self-care (01) ==
LOC: 3NENU → SUATTDRO 17:52
PROVIDERS: ADMIT Internal Medicine; ATTEND Pharmacist